=== PATIENT | female | born 1970 | race Two or more races ===

== ENCOUNTER 2021-07-08 10:11 | Emergency (ER) | payer OTHER ==
[~2021-07-08] VITALS: Ht 149.9 cm; Wt 68.0 kg
[2021-07-08] MEDS ORDERED: BIKTARVY 50-201 EACH PO (10:21)
[2021-07-08] MEDS ORDERED: DICY20TA PO (15:02)
[2021-07-08] MEDS ORDERED: PYRIDIUM100 MG PO (15:02)
== END 2021-07-08 15:18 | disposition home or self-care (01) ==
LOC: ER 10:11
DX: N39.0 Urinary tract infection, site not specified (principal); K12.0 Recurrent oral aphthae; I10 Essential (primary) hypertension